=== PATIENT | male | born 1960 | race Native Hawaiian/Other Pacific Islander ===

== ENCOUNTER 2021-02-24 10:13 | Outpatient (CLI) | payer BC, OTHER ==
[~2021-02-24] VITALS: Ht 165.1 cm; Wt 78.0 kg
== END 2021-02-24 21:11 | disposition home or self-care (01) ==
LOC: INF 10:13
PROVIDERS: ATTEND Internal Medicine
DX: Z23 Encounter for immunization (principal); U07.1 COVID-19
CPT/HCPCS: 96365; M0244